=== PATIENT | male | born 1980 | race Two or more races ===

== ENCOUNTER → 2019-02-25 | Emergency (ER) | payer OTHER ==
[~2019-02-25] VITALS: Ht 175.3 cm; Wt 80.7 kg
[~2019-02-25] MED LIST: PHAZYME180 MG PO; ZYNCOF 20-400120 ML PO
== END | disposition home or self-care (01) ==
LOC: ER 20:25
DX: B34.9 Viral infection, unspecified (principal)

== ENCOUNTER 2020-07-06 22:44 | Emergency (ER) | payer OTHER ==
[~2020-07-06] VITALS: Ht 175.3 cm; Wt 77.1 kg
[2020-07-07] MEDS ORDERED: ORPHENADRINE C100 MG PO (01:03)
[2020-07-07] MEDS ORDERED: KETO10TA2 PO (01:03)
== END 2020-07-07 01:21 | disposition home or self-care (01) ==
LOC: ER 22:44
DX: M62.830 Muscle spasm of back (principal)